=== PATIENT | female | born 1965 ===

== ENCOUNTER 2021-02-27 12:45 | Inpatient (IN) | payer OTHER ==
[~2021-02-27] VITALS: Ht 170.2 cm; Wt 70.3 kg
[2021-02-27] MEDS ORDERED: SYNTHROID50 MCG PO (16:18)
[2021-02-27] MEDS ORDERED: PROMETRIUM200 MG PO (16:25)
[2021-02-27] MEDS ORDERED: YUVAFEM10 MCG VAG (16:26)
[2021-02-27] MEDS ORDERED: DHEA25 MG PO (16:26)
[2021-02-28] MEDS ORDERED: ESTRADIOL1 EAC8 TD (16:23)
== END 2021-03-02 13:20 | disposition home or self-care (01) | DRG 743 ==
LOC: O/R 02-28 09:25 → OB/GYN 02-28 09:25
PROVIDERS: ADMIT Specialist; ATTEND Specialist
PROC: 0UT20ZZ Resection of Bilateral Ovaries, Open Approach (ICD-10-PCS; 2021-02-28)
PROC: 0UT70ZZ Resection of Bilateral Fallopian Tubes, Open Approach (ICD-10-PCS; 2021-02-28)
PROC: 0UT90ZZ Resection of Uterus, Open Approach (ICD-10-PCS; principal; 2021-02-28 12:30)
DX: D25.1 Intramural leiomyoma of uterus (principal); N72 Inflammatory disease of cervix uteri; N83.312 Acquired atrophy of left ovary; N83.311 Acquired atrophy of right ovary; N93.8 Other specified abnormal uterine and vaginal bleeding; N95.0 Postmenopausal bleeding; E03.9 Hypothyroidism, unspecified